=== PATIENT | male | born 1955 | race Caucasian/White ===

== ENCOUNTER 2017-08-05 18:44 | Emergency (ER) | payer OTHER ==
[~2017-08-05] VITALS: Ht 157.5 cm; Wt 62.3 kg
[2017-08-05 19:09] VITALS: Ht 157.5 cm; Wt 62.3 kg
[2017-08-05] MEDS ORDERED: ACETAMINOPHEN 500 MG TAB PO STA (21:04)
--- NOTE | 2017-08-05 21:18 | ERD ---
ER Documentation Chief Complaint Chief Complaint fever off and on x3 weeks. put on atb on saturday from pmd office. HPI 61-year-old male presents here to emergency department for complaints of fever on and off for 3 weeks, cough for 3 weeks. Patient has been having dry cough, has been having on and off wheezing. Patient was seen by primary care doctor, was started on amoxicillin. Patient does not have any sore throat or ear pain. ROS All systems reviewed and are negative except as per history of present illness. Medications Home Meds Reported Medications [none] Unknown Strength No Conflict Check 08/05/17 Allergies Allergies: Coded Allergies: No Known Allergy (Unverified , 08/05/17) PMhx/Soc History of Surgery: Yes (lumbar spine surgery) Hx Alcohol Use: Yes (occasionally) Hx Substance Use: No Hx Tobacco Use: No Smoking Status: Never smoker FmHx Family History: No coronary disease, No diabetes, No other Physical Exam Vitals Vital Signs Date Time Temp Pulse Resp B/P Pulse Ox O2 Delivery O2 Flow Rate FiO2 08/05/17 19:09 99.7 78 20 144/75 98 Physical Exam GENERAL: The patient is well developed and appropriate for usual state of health, in no apparent distress. CHEST: Clear to auscultation bilaterally. There are no rales, wheezes or rhonchi. HEART: Regular rate and rhythm. No murmurs, clicks, rubs or gallops. No S3 or S4. ABDOMEN: Soft, nontender and nondistended. Good bowel sounds. No rebound or guarding. No gross peritonitis. No gross organomegaly or masses. No Siu sign or McBurney point tenderness. BACK: No midline or flank tenderness. EXTREMITIES: Equal pulses bilaterally. There is no peripheral clubbing, cyanosis or edema. No focal swelling or erythema. Full range of motion. Grossly neurovascularly intact. NEURO: Alert and oriented. Cranial nerves 2-12 intact. Motor strength in all 4 extremities with 5/5 strength. Sensation grossly intact. Normal speech and gait. SKIN: There is no apparent rash or petechia. The skin is warm and dry. HEMATOLOGIC AND LYMPHATIC: There is no evidence of excessive bruising or lymphedema. No gross cervical, axillary, or inguinal lymphadenopathy. Results 24 hrs Current Medications Medications (Trade) Dose Ordered Sig/Erlinda Route PRN Reason Start Time Stop Time Status Last Admin Dose Admin Acetaminophen (Tylenol Tab) 500 mg ONCE STAT PO 08/05/17 21:04 08/05/17 21:07 DC 08/05/17 21:12 Ibuprofen (Motrin) 600 mg ONCE ONCE PO 08/05/17 21:30 08/05/17 21:31 DC 08/05/17 21:12 Patient was given medicines for fever control here in the emergency department. After treatment, patient temperature improved and lower. Patient appears well and is hemodynamically stable. PROCEDURE: XR Chest. CLINICAL INDICATION: Cough TECHNIQUE: Single frontal view of the chest was obtained COMPARISON: None FINDINGS: The heart and mediastinum are within normal limits. The lungs are clear. There is no pleural effusion or pneumothorax. Fusion hardware is seen in the visualized upper lumbar spine region. IMPRESSION: No acute disease. RPTAT: HJES .Harsha Hernandez MD, MD Date Time Electronically viewed and signed by .Harsha Hernandez MD, MD on 08/05/2017 21:28 .S/ CC: PRACHI COLLIER SUSTAINABILITY MANAGER Procedures/MDM Medical Decision Making: Patient symptoms are most likely consistent with acute bronchitis, which most likely caused by a typical infection. There is low suspicion for Pneumonia at this time since patients lungs sounds are clear , patient O2 saturation is normal and patient doesnt show any respiratory distress. Patients chest xray doesnt show infiltrates or any other cardiopulmonary emergencies at this time. There is low suspicion for other cardiopulmonary emergencies at this time such as CHF, Pulmonary Embolism, Pneumothorax, guaifenesin with codeine ibuprofen Tylenol pro-air or any other cardiopulmonary emergencies at this time. There is low suspicion for sepsis. Patient appears well and is hemodynamically stable. Fever is controlled with medicines. Disposition: Home. Condition: Stable Prescriptions: Azithromycin, guaifenesin with codeine Zyrtec ibuprofen ALbuterol Instructions: Patient is advised to take medications as prescribed. Patient is advised to rest. Patient advised to increase fluid intake, do humidifier at home and if possible, do salt water gargles. Patient is advised that if symptoms are worse, shortness of breath, uncontrolled fever, stridor, vomiting, worst signs and symptoms to return to emergency department immediately. Otherwise, patient is advised to follow up with primary doctor in 5-7 days. Disclaimer: Inadvertent spelling and grammatical errors are likely due to EHR/ dictation software use and do not reflect on the overall quality of patient care. Also, please note that the electronic time recorded on this note does not necessarily reflect the actual time of the patient encounter. Departure Diagnosis: Primary Impression: Acute bronchitis Bronchitis organism: unspecified organism Qualified Code: J20.9 - Acute bronchitis, unspecified organism Condition: Stable Patient Instructions: Bronchitis, Antiobiotic Treatment (Adult) Additional Instructions: Patient is advised to take medications as prescribed. Patient is advised to rest. Patient advised to increase fluid intake, do humidifier at home and if possible, do salt water gargles. Patient is advised that if symptoms are worse, shortness of breath, uncontrolled fever, stridor, vomiting, worst signs and symptoms to return to emergency department immediately. Otherwise, patient is advised to follow up with primary doctor in 5-7 days. PRACHI COLLIER NP Aug 05, 2017 21:18
--- NOTE | 2017-08-05 21:28 | RADRPT ---
PROCEDURE: XR Chest. CLINICAL INDICATION: Cough TECHNIQUE: Single frontal view of the chest was obtained COMPARISON: None FINDINGS: The heart and mediastinum are within normal limits. The lungs are clear. There is no pleural effusion or pneumothorax. Fusion hardware is seen in the visualized upper lumbar spine region. IMPRESSION: No acute disease. RPTAT: HJES .Harsha Hernandez MD, MD Date Time Electronically viewed and signed by .Harsha Hernandez MD, MD on 08/05/2017 21:28 .S/
[2017-08-05] MEDS ORDERED: IBUPROFEN 600 MG TAB PO ONE (21:30)
[2017-08-05] MEDS ORDERED: GUAI473L22 PO (21:59)
[2017-08-05] MEDS ORDERED: ALBU8.5H3 INH (21:59)
[2017-08-05] MEDS ORDERED: IBUP-1542 PO (21:59)
[2017-08-05] MEDS ORDERED: CETI10CA PO (21:59)
[2017-08-05] MEDS ORDERED: AZIT250T94 PO (21:59)
[2017-08-05 22:09] VITALS: BP 112/72; PULSE 69; RESP 18; TEMP 98.5
== END 2017-08-05 22:15 | disposition home or self-care (01) ==
LOC: E/R 18:44 → FTE 22:15
DX: J20.9 Acute bronchitis, unspecified (principal)
CPT/HCPCS: 71010